=== PATIENT | female | born 1995 | race Caucasian/White ===

== ENCOUNTER 2021-09-19 23:29 | Emergency (ER) | payer MEDICAID ==
[~2021-09-19] VITALS: Ht 154.9 cm; Wt 72.6 kg
[2021-09-19 23:30] VITALS: BP 140/82
== END 2021-09-20 03:45 | disposition left against medical advice (07) ==
LOC: ER 23:29
DX: M25.511 Pain in right shoulder (principal); Z53.21 Procedure and treatment not carried out due to patient leaving prior to being seen by health care provider